=== PATIENT | male | born 1970 ===

== ENCOUNTER 2018-01-17 12:50 | Emergency (ER) | payer OTHER ==
[2018-01-17 13:02] VITALS: BMI 29.4
[2018-01-17 13:04] VITALS: BP 138/80; PULSE 100; RESP 18; TEMP 98.3; O2SAT 97
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
== END 2018-01-17 14:53 | disposition home or self-care (01) ==
LOC: C.ER 12:50
DX: M62.830 Muscle spasm of back (principal); M62.838 Other muscle spasm; V89.2XXA Person injured in unspecified motor-vehicle accident, traffic, initial encounter